=== PATIENT | male | born 1990 | race Caucasian/White ===

== ENCOUNTER 2018-03-06 19:25 | Observation (INO) | payer OTHER, SELFPAY ==
[2018-03-06 19:26] VITALS: BP 162/80; PULSE 86; RESP 18; TEMP 36.2; O2SAT 99; BMI 26.2
[2018-03-06 21:00] VITALS: BP 155/76; PULSE 78; RESP 15; TEMP 36.8; O2SAT 99
--- NOTE | 2018-03-06 21:06 | ED.DCSUM_ITS ---
- ER Visit Summary Date of Service: 03/06/18 Chief Complaint: Left hand swelling and injury History of Present Illness: The patient is a 27 M who presents for 5 days of left hand swelling and pain after an injury. Patient accidentally punctured his left second MCP region with a welding wire. He was seen at urgent care 2 days ago, placed on Bactrim, and had an x-ray performed that showed no bony involvement or retained foreign bodies. He has had 4 doses of the Bactrim, and has had continued worsening of the swelling and pain. Swelling and pain is now moving up his arm. He denies fever. Tetanus is up-to-date. No medical problems. Patient is a smoker. Physical Examination: Patient is afebrile and hemodynamically stable. Well-nourished well-developed in no distress. Examination of the left upper extremity shows significant erythema, swelling and tenderness of the dorsum of the hand, with fluctuance over the second MCP joint. A small scabbed puncture wound noted. Patient has pain with passive flexion. No pain with passive extension. No fusiform swelling. Erythema up to the distal forearm, no lymphangitis beyond the mid distal forearm. No tenderness or lymphadenopathy in the left axilla. Test Results: Abnormal Lab Results 03/06/18 03/06/18 03/06/18 21:25 21:25 21:25 WBC 12.0 H RBC 4.66 Hgb 14.7 Hct 42.3 MCV 90.8 MCH 31.5 MCHC 34.8 RDW 12.8 RDW Differential 42.0 Plt Count 212 MPV 10.6 Immature Gran % (Auto) 0.200 Neut % (Auto) 76.3 H Lymph % (Auto) 13.3 L [place] % (Auto) 8.1 Eos % (Auto) 1.8 Baso % (Auto) 0.3 Absolute Neuts (auto) 9.2 H Absolute Lymphs (auto) 1.60 Total Counted Not Reportable PT 13.3 INR 1.0 APTT 37.1 H Sodium 140 Potassium 3.8 Chloride 107 Carbon Dioxide 26.0 Anion Gap 7 BUN 11 Creatinine 1.01 Estim Creat Clear Calc 109.86 Est GFR (MDRD) Af Amer 114 Est GFR (MDRD) Non-Af 94 BUN/Creatinine Ratio 10.9 Glucose 90 Lactic Acid Calcium 9.0 Total Bilirubin 0.30 AST 16 ALT 24 Alkaline Phosphatase 90 Total Protein 7.1 Albumin 3.8 Globulin 3.3 Albumin/Globulin Ratio 1.2 03/06/18 21:25 WBC RBC Hgb Hct MCV MCH MCHC RDW RDW Differential Plt Count MPV Immature Gran % (Auto) Neut % (Auto) Lymph % (Auto) [place] % (Auto) Eos % (Auto) Baso % (Auto) Absolute Neuts (auto) Absolute Lymphs (auto) Total Counted PT INR APTT Sodium Potassium Chloride Carbon Dioxide Anion Gap BUN Creatinine Estim Creat Clear Calc Est GFR (MDRD) Af Amer Est GFR (MDRD) Non-Af BUN/Creatinine Ratio Glucose Lactic Acid 0.9 Calcium Total Bilirubin AST ALT Alkaline Phosphatase Total Protein Albumin Globulin Albumin/Globulin Ratio Clinical Impression(s) from Imaging Studies Hand X-Ray 03/06/18 21:35 IMPRESSION: Soft tissue swelling of the dorsum of the hand. The osseous structures are unremarkable. Electronically Signed: Neel White MD at 21:57 EST , Service support , Medications Given Discontinued Medications Hydrocodone Bitart/Acetaminophen ([place] 5mg-325mg) 1 tablet PO X1 ONE Stop: 03/06/18 23:47 Last Admin: 03/06/18 23:51 Dose: 1 tablet Ampicillin Sodium/Sulbactam (Sodium 3 gm/ Sodium Chloride) 112 mls @ 150 mls/hr IV X1 ONE Stop: 03/07/18 00:09 Last Admin: 03/06/18 23:56 Dose: 150 mls/hr Vancomycin HCl 1,500 mg/ (Sodium Chloride) 530 mls @ 250 mls/hr IV X1 ONE Stop: 03/07/18 01:32 Last Admin: 03/07/18 00:30 Dose: 250 mls/hr Ketorolac Tromethamine (Toradol) 15 mg IV X1 ONE Stop: 03/06/18 21:04 Last Admin: 03/06/18 21:25 Dose: 15 mg Lidocaine HCl (Lidocaine Hcl 1% Mdv) 0 ml INFILT X1 ONE Stop: 03/06/18 21:04 Last Admin: 03/06/18 23:02 Dose: 1 ml Emergency Department Course and Treatment: Patient presents with significant cellulitic changes to the left hand beginning to radiate up the forearm, with fluctuance over the site of injury over the second MCP joint. X-ray was performed that showed no foreign body, no bony involvement and no subcutaneous gas. Patient had no leukocytosis. Labs were unremarkable. Lactate normal. No signs of systemic illness. Patient received Toradol for pain and normal saline for hydration. He continued to have significant pain and was given [place]. An incision and drainage was performed of the fluctuant area at the site of the wound. The area was cleansed thoroughly with Betadine. An 18-gauge needle was introduced into the point of maximal fluctuance and bloody purulent drainage was easily aspirated. Wound cultures, including anaerobic, was sent. Large amount of pus was expressed from the wound cavity, and a 11 blade scalpel was used to enlarge the puncture site, with expression of even more purulent drainage. Patient had instant improvement of his discomfort with the pressure released. Patient was started on vancomycin and Unasyn. Given the extent of the cellulitic changes involving the entire hand and distal forearm, patient would benefit from admission for IV antibiotics. Patient agreed with this plan and was discussed with the hospitalist. Treatment Plan: [] Disposition: [] Impression: Left hand cellulitis, left hand abscess status post incision and drainage This note was generated with [employer] dictation software. It may contain incorrect words, spelling, and punctuation that were not noted in review of the chart prior to signing ED Disposition - Plan for ED Patient: Disposition: Acute Care [facility] Chief Complaint: Cellulitis
[2018-03-06] MEDS: 0.9% Normal Saline 1,000 ML 999 ML IV (21:25)
[2018-03-06] MEDS: Ketorolac 15 MG/ML Vial IV (21:25)
--- NOTE | 2018-03-06 21:35 | RAD_ITS ---
STUDY: X-RAY - LEFT HAND REASON FOR EXAM: Male, 27 years old. Redness and swelling, foreign body removed 11 days ago TECHNIQUE: 3 view(s) of the hand. COMPARISON: Prior study of 01/04/2009 FINDINGS: Normal radiocarpal articulation. Normal distal radioulnar joint. Normal visualized carpal bones. Normal carpal articulations Normal carpometacarpal articulation of the thumb. Normal second through fifth carpometacarpal joints. Normal metacarpi. Normal metacarpophalangeal joint of the thumb. Normal interphalangeal joint of the thumb. Normal proximal and distal phalanges of the thumb. Normal metacarpophalangeal joints of the second through fifth fingers. Normal proximal and distal interphalangeal joints of the second through fifth fingers. Normal phalanges of the second through fifth fingers. There is soft tissue swelling of the dorsum of the hand. No radiopaque foreign body or soft tissue gas is noted. RAD/Hand Min 3 Views IMPRESSION: Soft tissue swelling of the dorsum of the hand. The osseous structures are unremarkable. Electronically Signed: Neel White MD at 21:57 EST , Service support ,
[2018-03-06 21:43] LABS: Absolute Neutrophil Count 9.2 X10^3/uL (2.0-7.7); Basophil# 0.04 X10^3/uL; Basophil% 0.3 % (0-1); Eosinophil# 0.22 X10^3/uL; Eosinophils% 1.8 % (0-5); Hematocrit 42.3 % (40-54); Hemoglobin 14.7 g/dl (13.0-16.5); Lymphocyte % 13.3 % (19-41); Mean Corp Hgb Conc 34.8 g/gl (32-36); Mean Corpuscular Hgb 31.5 pg (27.0-32.0); Mean Corpuscular Volume 90.8 fL (80-94); Mean Platelet Vol. 10.6 fl (6.2-12.0); Monocyte# 0.97 X10^3/uL; Monocyte% 8.1 % (0-10); Neutrophil # 9.19 X10^3/uL (2.7-7.7); Neutrophil % 76.3 % (47-70); POSITIVE COUNT NO; POSITIVE DIFFERENTIAL NO; POSITIVE MORPHOLOGY NO; Platelet Count 212 K/mm3 (150-450); RBC Distribution Width CV 12.8 % (11.6-14.6); Red Blood Count 4.66 M/mm3 (4.6-6.2)
[2018-03-06 21:49] LABS: Prothrombin Time (Protime)PT. 13.3 SECONDS (11.7-14.9)
[2018-03-06 21:50] LABS: Partial Thromboplast Time 37.1 Seconds (24.1-36.2)
[2018-03-06 21:55] LABS: ALB/GLOB Ratio 1.2 RATIO (0.9-2.4); AST(SGOT) 16 U/L (15-37); Alanine Aminotransfer ALT/SGPT 24 U/L (16-61); Albumin, Serum 3.8 g/dL (3.2-5.0); Alkaline Phosphatase 90 U/L (45-117); Anion Gap 7 (5-15); BUN 11 mg/dL (7-18); BUN/Creat Ratio 10.9 RATIO (10-20); Chloride 107 mmol/L (98-107); Creatinine, Serum 1.01 mg/dL (0.70-1.30); EST Glomerular Filtration Rate 94 mL/min (>60); Est Glom Filt Rate - Afr Amer 114 mL/min (>60); Estimated Creatinine Clearance 109.86 ml/min; Globulin 3.3 g/dL (2.2-4.2); Glucose 90 mg/dL (74-106); Potassium 3.8 mmol/L (3.5-5.1); Protein, Total 7.1 g/dL (6.4-8.2); Sodium Level 140 mmol/L (136-145)
--- NOTE | 2018-03-06 21:59 | ED.RN ---
NO OLD EKG
[2018-03-06 22:00] VITALS: BP 137/86; PULSE 74; RESP 14; TEMP 37.1; O2SAT 100
[2018-03-06 22:10] LABS: Lactic Acid 0.9 mmol/L (0.4-2.0)
[2018-03-06 23:00] VITALS: BP 134/78; PULSE 74; RESP 18; TEMP 36.9; O2SAT 99
[2018-03-06] MEDS: HYDROcodone Bitartrate/Apap 5/325 Tablet PO (23:51)
[2018-03-07] VITALS (7 sets, daily range): BP systolic 118–133; BP diastolic 50–77; PULSE 59–78; RESP 14–20; TEMP 36.6–37.2; O2SAT 97–98; BMI 25.9; BMI 26.0
--- NOTE | 2018-03-07 00:01 | HP.PCM_ITS ---
History of Present Illness Date of Admission: 03/07/18 Chief Complaint: swollen, painful left hand Patient is a 27y/o M With no significant past medical history. He works as a industrial welder. He was admitted through the ED with a complaint of swelling and pain of his right hand for the past few days. According to patient, the dorsum of his left hand was pierced by [place] machine a few days ago. He noticed some redness and swelling and went to an urgent care. He was given a prescription for Bactrim and told that if the swelling worsen he should go to the ED. Symptoms however did not resolve and swelling and redness got worse with decreased ability to use his left hand. He therefore decided to come to the ED today. In the ED vitals were unremarkable. CBC showed white cell count of 12 and BMP was within normal limits. X-ray of the left hand showed soft tissue swelling of the dorsum of the left hand. He had I&D of an abscess on the dorsum of the left hand drain in the ED with drainage of significant amount of pus which was sent for culture. Blood cultures were taken he was started on IV vancomycin and [place] syn. He has been admitted to be managed for cellulitis of the left hand. Past Medical History Allergies No Known Allergies Allergy (Verified 03/06/18 19:26) Home Medications: Ambulatory Orders Medication Instructions Recorded Smz/Tmp Ds [Bactrim Ds] 1 tablet PO BID 03/06/18 Surgical History: no surgical history Psychiatric History: No pertinent psych hx Lives: Alone Smoking Status: Current every day smoker Tobacco Use: Cigarettes Alcohol: None, Occasional Drugs: None - *Family History Maternal History Items: Heart Disease, Hypertension Review of Systems Constitutional: Denies: Chills, Fever, Night Sweats, Weight Change HEENT: Denies: Head Aches, Sinus Congestion, Sinus Drainage Cardiovascular: Denies: Chest Pain, Palpitations Respiratory: Denies: Cough, Shortness of Breath, Shortness of breath at rest, Sputum production Gastrointestinal: Denies: Abdominal Pain, Nausea, Vomiting Genitourinary: Denies: Dysuria Musculoskeletal: Reports: Hand Pain - left hand pain, -. Denies: Joint Pain, Joint Tenderness Skin: Denies: Rash, Wounds Neurological: Denies: Numbness, Tingling, Focal weakness Psychiatric: Denies: Anxiety, Depression, Homicidal Ideations, Suicidal Ideations Hematologic/ Lymphatic: Denies: Easy Bruising, Easy Bleeding VTE Information - Inpt Only VTE Present on Admission: No VTE Pharm Prophylaxis ordered?: Yes - Physical Exam General: Alert, Oriented x3, Cooperative, No apparent distress HEENT: Atraumatic, PERRLA, EOMI, Normocephalic Oral: Moist Mucosa Neck: Supple, No JVD, Negative Carotid Bruits Lungs: Clear to auscultation, Normal air movement Cardiovascular: Regular rate, Regular Rhythm, Normal S1, Normal S2, No murmurs Abdomen: Bowel Sounds Present, Soft, Non Tender, Non-Distended, No Hepato- splenomegaly Extremities: No clubbing, No cyanosis, No edema, Capillary Refill Less than 3 Seconds Skin: No rashes, - - as under MSK Musculoskeletal: - - left hand is swollen, tense, tender to touch and erythematous. fluctuant, erythematous area over dorsum of left 2nd MCP joint, which is site of I&D Lymphatic: No Cervical, Supraclavicular, or Inguinal Adenopathy Neurological: Cranial nerves II-XII grossly intact, Neuro grossly intact, Motor Exam 5/5 strength throughout Psych/Mental Status: Normal Affect, Appropriate, Alert and oriented to time, place, person, mood and affect Vital Signs Temp Pulse Resp BP Pulse Ox 98.5 F 74 18 134/78 H 99 03/06/18 23:00 03/06/18 23:00 03/06/18 23:00 03/06/18 23:00 03/06/18 23:00 Oxygen Delivery Method Room Air Weight: 177 lb 11.081 oz Body Mass Index (BMI) 26.2 Laboratory Tests Past 24 Hrs 03/06/18 03/06/18 03/06/18 21:25 21:25 21:25 WBC 12.0 H RBC 4.66 Hgb 14.7 Hct 42.3 MCV 90.8 MCH 31.5 MCHC 34.8 RDW 12.8 RDW Differential 42.0 Plt Count 212 MPV 10.6 Immature Gran % (Auto) 0.200 Neut % (Auto) 76.3 H Lymph % (Auto) 13.3 L [place] % (Auto) 8.1 Eos % (Auto) 1.8 Baso % (Auto) 0.3 Absolute Neuts (auto) 9.2 H Absolute Lymphs (auto) 1.60 Total Counted Not Reportable PT 13.3 INR 1.0 APTT 37.1 H Sodium 140 Potassium 3.8 Chloride 107 Carbon Dioxide 26.0 Anion Gap 7 BUN 11 Creatinine 1.01 Estim Creat Clear Calc 109.86 Est GFR (MDRD) Af Amer 114 Est GFR (MDRD) Non-Af 94 BUN/Creatinine Ratio 10.9 Glucose 90 Lactic Acid Calcium 9.0 Total Bilirubin 0.30 AST 16 ALT 24 Alkaline Phosphatase 90 Total Protein 7.1 Albumin 3.8 Globulin 3.3 Albumin/Globulin Ratio 1.2 03/06/18 21:25 WBC RBC Hgb Hct MCV MCH MCHC RDW RDW Differential Plt Count MPV Immature Gran % (Auto) Neut % (Auto) Lymph % (Auto) [place] % (Auto) Eos % (Auto) Baso % (Auto) Absolute Neuts (auto) Absolute Lymphs (auto) Total Counted PT INR APTT Sodium Potassium Chloride Carbon Dioxide Anion Gap BUN Creatinine Estim Creat Clear Calc Est GFR (MDRD) Af Amer Est GFR (MDRD) Non-Af BUN/Creatinine Ratio Glucose Lactic Acid 0.9 Calcium Total Bilirubin AST ALT Alkaline Phosphatase Total Protein Albumin Globulin Albumin/Globulin Ratio Diagnostic Data Hand X-Ray 03/06/18 21:35 IMPRESSION: Soft tissue swelling of the dorsum of the hand. The osseous structures are unremarkable. Electronically Signed: Neel White MD at 21:57 EST , Service support , Assessment/Plan 27-year-old male admitted with a complaint of pain, redness and swelling of his left hand. 1. Cellulitis and abscess of left hand s/p I&D * had traumatic injury to hand a few days ago * failed outpatient therapy with bactrim * admit to [facility] surg * xray showed soft tissue swelling of left hand * has mildly elvated white cell count of 12 * blood cultures and cultures of pus obtained * started on IV vancomycin and unasyn in ED; will continue * tylenol for pain * consult with Dr Zaman for further review * 2./ DVT prophylaxis: heparin Code Visit OBSV E&M: 18181 Initial observation care L3
--- NOTE | 2018-03-07 05:19 | PCM.RX.CS ---
Consult Pharmacy has been consulted to manage selected antiobiotic: Vancomycin Type of Consult: New start Suspected Infection: Skin/Soft tissue Labs: Sodium 140 mmol/L (136-145) 03/06/18 21:25 Potassium 3.8 mmol/L (3.5-5.1) 03/06/18 21:25 Chloride 107 mmol/L (98-107) 03/06/18 21:25 Carbon Dioxide 26.0 mmol/L (21.0-32.0) 03/06/18 21:25 Anion Gap 7 (5-15) 03/06/18 21:25 BUN 11 mg/dL (7-18) 03/06/18 21:25 Creatinine 1.01 mg/dL (0.70-1.30) 03/06/18 21:25 Est GFR (MDRD) Af Amer 114 mL/min (>60) 03/06/18 21:25 Est GFR (MDRD) Non-Af 94 mL/min (>60) 03/06/18 21:25 BUN/Creatinine Ratio 10.9 RATIO (10-20) 03/06/18 21:25 Glucose 90 mg/dL (74-106) 03/06/18 21:25 Weight used for dosin.9 kg Estimated Creatinine Clearance: 109.86 Goal Trough: 15-20 mcg/mL Pharmacy Plan for Drug Dosing: Pharmacy Service will continue to monitor and adjust dosing as required. Medications Vancomycin HCl (Vancomycin) 1,000 mg in 200 mls @ 200 mls/hr IV Q12H CARLOS Discontinued Medications Vancomycin HCl 1,500 mg/ (Sodium Chloride) 530 mls @ 250 mls/hr IV X1 ONE Stop: 03/07/18 01:32 Last Admin: 03/07/18 00:30 Dose: 250 mls/hr Follow-Up Labs: Trough Vancomycin Labs to be done on [date and time ordered]: 03/08 @ 0000
[2018-03-07] MEDS: Acetaminophen 325 MG Tablet 650 MG PO (05:58)
[2018-03-07 06:16] LABS: Absolute Neutrophil Count 5.8 X10^3/uL (2.0-7.7); Basophil# 0.03 X10^3/uL; Basophil% 0.3 % (0-1); Eosinophil# 0.34 X10^3/uL; Eosinophils% 3.8 % (0-5); Hematocrit 40.9 % (40-54); Hemoglobin 13.7 g/dl (13.0-16.5); Lymphocyte % 21.5 % (19-41); Mean Corp Hgb Conc 33.5 g/gl (32-36); Mean Corpuscular Hgb 30.8 pg (27.0-32.0); Mean Corpuscular Volume 91.9 fL (80-94); Mean Platelet Vol. 10.8 fl (6.2-12.0); Monocyte# 0.73 X10^3/uL; Monocyte% 8.2 % (0-10); Neutrophil # 5.84 X10^3/uL (2.7-7.7); Neutrophil % 66.1 % (47-70); Platelet Count 190 K/mm3 (150-450); RBC Distribution Width CV 12.9 % (11.6-14.6); RBC Distribution Width SD 42.7 fl (35.1-43.9); Red Blood Count 4.45 M/mm3 (4.6-6.2); White Blood Count 8.9 K/mm3 (4.4-11.0)
[2018-03-07 06:28] LABS: POSITIVE COUNT NO; POSITIVE DIFFERENTIAL NO; POSITIVE MORPHOLOGY NO
[2018-03-07 06:29] LABS: Anion Gap 7 (5-15); BUN 11 mg/dL (7-18); BUN/Creat Ratio 11.1 RATIO (10-20); Calcium,Total 8.4 mg/dL (8.5-10.1); Chloride 111 mmol/L (98-107); Creatinine, Serum 0.99 mg/dL (0.70-1.30); EST Glomerular Filtration Rate 96 mL/min (>60); Est Glom Filt Rate - Afr Amer 117 mL/min (>60); Estimated Creatinine Clearance 112.08 ml/min; Glucose 111 mg/dL (74-106); Potassium 3.6 mmol/L (3.5-5.1); Sodium Level 143 mmol/L (136-145)
[2018-03-07] MEDS: Vancomycin IV 1,000 MG/200 ML BAG 200 MG IV (08:45)
--- NOTE | 2018-03-07 09:40 | CASEMGMT ---
JOE HA Face to Face with patient for initial transition planning/care coordination assessment. RN CM introduced self and role at [facility]. Patient lying in bed, alert and oriented, girlfriend at bedside. Patient willing to participate in assessment and is able to answer all questions appropriately. Care providers, pharmacy, and demographics verified. Patient wishes to discharge home, denies need for home health at this time. Patient has no PCP, list provided. Girlfriend can assist with care. Patient states he has no further needs or concerns at this time. CM to follow for discharge planning needs that may arise. Disposition Plan: Patient to discharge home with family support and follow-up plans in place. Anne STOKES, RN, CM
--- NOTE | 2018-03-07 09:51 | PCM.PN.HOSP ---
Patient Problems: Active and Suspected Problems Cellulitis of left hand excluding fingers and thumb (Acute) Subjective: swelling and pain much improved since his hand was lanced. Vitals/I&O's: Vital Signs Temp Pulse Resp BP Pulse Ox 36.6 C 59 L 16 121/69 H 98 03/07/18 05:53 03/07/18 05:53 03/07/18 05:53 03/07/18 05:53 03/07/18 05:53 Oxygen Delivery Method Room Air Weight: 79.9 kg Body Mass Index (BMI) 25.9 Intake and Output for Last 24 Hours 03/05/18 03/06/18 03/07/18 23:59 23:59 23:59 Intake Total 982 / 982 Balance 982 / 982 General: Alert, No apparent distress HEENT: Atraumatic, Normocephalic Musculoskeletal: - - swelling on dorsum of left hand at 2nd MCP joint. I+D site clean. minimal TTP. Psych/Mental Status: Normal Affect, Appropriate Laboratory Results 03/06/18 21:25: WBC 12.0 H, RBC 4.66, Hgb 14.7, Hct 42.3, MCV 90.8, MCH 31.5, MCHC 34.8, RDW 12.8, RDW Differential 42.0, Plt Count 212, MPV 10.6, Immature Gran % (Auto) 0.200, Neut % (Auto) 76.3 H, Lymph % (Auto) 13.3 L, [place] % (Auto) 8.1, Eos % (Auto) 1.8, Baso % (Auto) 0.3, Absolute Neuts (auto) 9.2 H, Absolute Lymphs (auto) 1.60, Total Counted Not Reportable 03/06/18 21:25: PT 13.3, INR 1.0, APTT 37.1 H 03/06/18 21:25: Sodium 140, Potassium 3.8, Chloride 107, Carbon Dioxide 26.0, Anion Gap 7, BUN 11, Creatinine 1.01, Estim Creat Clear Calc 109.86, Est GFR (MDRD) Af Amer 114, Est GFR (MDRD) Non-Af 94, BUN/Creatinine Ratio 10.9, Glucose 90, Calcium 9.0, Total Bilirubin 0.30, AST 16, ALT 24, Alkaline Phosphatase 90, Total Protein 7.1, Albumin 3.8, Globulin 3.3, Albumin/Globulin Ratio 1.2 03/06/18 21:25: Lactic Acid 0.9 03/07/18 05:45: Sodium 143, Potassium 3.6, Chloride 111 H, Carbon Dioxide 25.0, Anion Gap 7, BUN 11, Creatinine 0.99, Estim Creat Clear Calc 112.08, Est GFR (MDRD) Af Amer 117, Est GFR (MDRD) Non-Af 96, BUN/Creatinine Ratio 11.1, Glucose 111 H, Calcium 8.4 L 03/07/18 05:45: WBC 8.9, RBC 4.45 L, Hgb 13.7, Hct 40.9, MCV 91.9, MCH 30.8, MCHC 33.5, RDW 12.9, RDW Differential 42.7, Plt Count 190, MPV 10.8, Immature Gran % (Auto) 0.100, Neut % (Auto) 66.1, Lymph % (Auto) 21.5, [place] % (Auto) 8.2, Eos % (Auto) 3.8, Baso % (Auto) 0.3, Absolute Neuts (auto) 5.8, Absolute Lymphs (auto) 1.90, Total Counted Not Reportable Current Medications Acetaminophen (Tylenol) 650 mg PO Q6H PRN PRN PRN Reason: PAIN Last Admin: 03/07/18 05:58 Dose: 650 mg Enoxaparin Sodium (Lovenox) 40 mg SC DAILY@1000 CARLOS Ampicillin Sodium/Sulbactam (Sodium 3 gm/ Sodium Chloride) 112 mls @ 150 mls/hr IV Q8 [facility] Last Admin: 03/07/18 05:59 Dose: 150 mls/hr Vancomycin IV Pharmacy to Dose (1 ea/ Sodium Chloride) 500 mls @ 250 mls/hr IV X1 PRN; Protocol PRN Reason: Rx to Dose Sodium Chloride () 250 mls @ 15 mls/hr IV .[id number] PRN PRN Reason: SALINE FLUSH Vancomycin HCl (Vancomycin) 1,000 mg in 200 mls @ 200 mls/hr IV Q12H [facility] Last Admin: 03/07/18 08:45 Dose: 200 mls/hr Ketorolac Tromethamine (Toradol) 30 mg IV Q6H PRN PRN PRN Reason: PAIN Stop: 12/29/18 06:38 Magnesium Hydroxide (Milk Of Magnesia) 30 ml PO DAILY PRN PRN PRN Reason: Constipation Sodium Chloride () 5 - 15 ml IV UD PRN PRN Reason: SALINE FLUSH Sodium Chloride () 5 - 15 ml IV UD PRN PRN Reason: SALINE FLUSH Medical Necessity - Tobacco Use Smoking Status: Current every day smoker Tobacco Use: Cigarettes Assessment/Plan All Active Problems Cellulitis of left hand excluding fingers and thumb (Acute) 1. Left hand abscess and cellulitis 2/2 injury improved after lancing on Unasyn and vanc await Dr. Zaman's evaluation pt anxious to be discharged, but advised it will depend if requires further intervention. Code Visit Procedures: Other Procedure - See Report - non-billable rounding.
--- NOTE | 2018-03-07 09:57 | PN_ITS ---
Patient Problems: Active and Suspected Problems Cellulitis of left hand excluding fingers and thumb (Acute) Subjective: swelling and pain much improved since his hand was lanced. Vitals/I&O's: Vital Signs Temp Pulse Resp BP Pulse Ox 36.6 C 59 L 16 121/69 H 98 03/07/18 05:53 03/07/18 05:53 03/07/18 05:53 03/07/18 05:53 03/07/18 05:53 Oxygen Delivery Method Room Air Weight: 79.9 kg Body Mass Index (BMI) 25.9 Intake and Output for Last 24 Hours 03/05/18 03/06/18 03/07/18 23:59 23:59 23:59 Intake Total 982 / 982 Balance 982 / 982 General: Alert, No apparent distress HEENT: Atraumatic, Normocephalic Musculoskeletal: - - swelling on dorsum of left hand at 2nd MCP joint. I+D site clean. minimal TTP. Psych/Mental Status: Normal Affect, Appropriate Laboratory Results 03/06/18 21:25: WBC 12.0 H, RBC 4.66, Hgb 14.7, Hct 42.3, MCV 90.8, MCH 31.5, MCHC 34.8, RDW 12.8, RDW Differential 42.0, Plt Count 212, MPV 10.6, Immature Gran % (Auto) 0.200, Neut % (Auto) 76.3 H, Lymph % (Auto) 13.3 L, [place] % (Auto) 8.1, Eos % (Auto) 1.8, Baso % (Auto) 0.3, Absolute Neuts (auto) 9.2 H, Absolute Lymphs (auto) 1.60, Total Counted Not Reportable 03/06/18 21:25: PT 13.3, INR 1.0, APTT 37.1 H 03/06/18 21:25: Sodium 140, Potassium 3.8, Chloride 107, Carbon Dioxide 26.0, Anion Gap 7, BUN 11, Creatinine 1.01, Estim Creat Clear Calc 109.86, Est GFR (MDRD) Af Amer 114, Est GFR (MDRD) Non-Af 94, BUN/Creatinine Ratio 10.9, Glucose 90, Calcium 9.0, Total Bilirubin 0.30, AST 16, ALT 24, Alkaline Phosphatase 90, Total Protein 7.1, Albumin 3.8, Globulin 3.3, Albumin/Globulin Ratio 1.2 03/06/18 21:25: Lactic Acid 0.9 03/07/18 05:45: Sodium 143, Potassium 3.6, Chloride 111 H, Carbon Dioxide 25.0, Anion Gap 7, BUN 11, Creatinine 0.99, Estim Creat Clear Calc 112.08, Est GFR (MDRD) Af Amer 117, Est GFR (MDRD) Non-Af 96, BUN/Creatinine Ratio 11.1, Glucose 111 H, Calcium 8.4 L 03/07/18 05:45: WBC 8.9, RBC 4.45 L, Hgb 13.7, Hct 40.9, MCV 91.9, MCH 30.8, MCHC 33.5, RDW 12.9, RDW Differential 42.7, Plt Count 190, MPV 10.8, Immature Gran % (Auto) 0.100, Neut % (Auto) 66.1, Lymph % (Auto) 21.5, [place] % (Auto) 8.2, Eos % (Auto) 3.8, Baso % (Auto) 0.3, Absolute Neuts (auto) 5.8, Absolute Lymphs (auto) 1.90, Total Counted Not Reportable Current Medications Acetaminophen (Tylenol) 650 mg PO Q6H PRN PRN PRN Reason: PAIN Last Admin: 03/07/18 05:58 Dose: 650 mg Enoxaparin Sodium (Lovenox) 40 mg SC DAILY@1000 CARLOS Ampicillin Sodium/Sulbactam (Sodium 3 gm/ Sodium Chloride) 112 mls @ 150 mls/hr IV Q8 [facility] Last Admin: 03/07/18 05:59 Dose: 150 mls/hr Vancomycin IV Pharmacy to Dose (1 ea/ Sodium Chloride) 500 mls @ 250 mls/hr IV X1 PRN; Protocol PRN Reason: Rx to Dose Sodium Chloride () 250 mls @ 15 mls/hr IV .[id number] PRN PRN Reason: SALINE FLUSH Vancomycin HCl (Vancomycin) 1,000 mg in 200 mls @ 200 mls/hr IV Q12H [facility] Last Admin: 03/07/18 08:45 Dose: 200 mls/hr Ketorolac Tromethamine (Toradol) 30 mg IV Q6H PRN PRN PRN Reason: PAIN Stop: 12/29/18 06:38 Magnesium Hydroxide (Milk Of Magnesia) 30 ml PO DAILY PRN PRN PRN Reason: Constipation Sodium Chloride () 5 - 15 ml IV UD PRN PRN Reason: SALINE FLUSH Sodium Chloride () 5 - 15 ml IV UD PRN PRN Reason: SALINE FLUSH Medical Necessity - Tobacco Use Smoking Status: Current every day smoker Tobacco Use: Cigarettes Assessment/Plan All Active Problems Cellulitis of left hand excluding fingers and thumb (Acute) 1. Left hand abscess and cellulitis * 2/2 injury * improved after lancing * on Unasyn and vanc * await Dr. Zaman's evaluation * pt anxious to be discharged, but advised it will depend if requires further intervention. Code Visit Procedures: Other Procedure - See Report - non-billable rounding.
--- NOTE | 2018-03-07 10:44 | PCM.DC ---
- Discharge Diagnoses Current Active Problems: Current Active and Chronic Problems Cellulitis of left hand excluding fingers and thumb (Acute) You will use the following diet at home:: No restrictions Your food should be the consistency of: Regular Your liquids should be the consistency of: Regular/Thin Discharge Activity: - - Do not return to work until ok'd by Dr. Zaman. Keep extremity elevated above heart level: - - left hand Call your doctor if your incision/area has: Continuous Slow Oozing, Sudden Increased Bleeding, Increased Pain/ Swelling, Increased Redness Call your doctor if you observe: Fever of 101 or Higher Change Dressing in (Days):: 1 Cleanse incision/area with: Soap & Water, Keep Dressing Clean & Dry Allergies/Adverse Reactions: Allergies No Known Allergies Allergy (Verified 03/06/18 19:26) Medications to take at Discharge Acetaminophen [Tylenol Tablet] 650 mg PO Q6H PRN PRN tablet 03/07/18 Amoxicillin/Potassium Clav [Augmentin 875-125 Tablet] 1 each PO BID #20 tablet 03/07/18 Doxycycline 100 mg PO BID #20 capsule 03/07/18 Ibuprofen 600 mg PO [id number] PRN #1 tablet 03/07/18 The following prescriptions were given: Amoxicillin/Potassium Clav [Augmentin 875-125 Tablet] 1 each PO BID #20 tablet Doxycycline 100 mg PO BID #20 capsule Ibuprofen 600 mg PO [id number] PRN #1 tablet PRN Reason: Pain Primary Care Physician: [facility] Doctor,Out of [NON-STAFF] - Test Results: Test results from this visit will be discussed in further detail at your follow-up appointment, if applicable. Please Follow Up With: Sonu Zaman MD When: This week. Call for appointment. Proposed Discharge Date: 03/07/18
--- NOTE | 2018-03-07 10:46 | PCM.DC.SUM ---
Discharge Date and Diagnosis - Problem List Patient Problems: Active and Suspected Problems Cellulitis of left hand excluding fingers and thumb (Acute) Date of Admission: 03/07/18 Date of Discharge: 03/07/18 - Primary Discharge Diagnosis Active and Suspected Problems Cellulitis of left hand excluding fingers and thumb (Acute) Hospital Course and Treatment Imaging Results: Clinical Impression(s) from Imaging Studies Hand X-Ray 03/06/18 21:35 IMPRESSION: Soft tissue swelling of the dorsum of the hand. The osseous structures are unremarkable. Electronically Signed: Neel White MD at 21:57 EST , Service support , Operations: None Procedures: None Summary of Care Provided: The patient is a 27 year old M presents with cellulitis of his left hand. Patient had an injury to his left hand week ago was seen in urgent care and started on Bactrim. His hand and left index finger was swollen. Patient presented to the emergency room and had it lanced which showed copious pus. Patient noted great improvement of swelling in his hand. Patient is better able to make a fist though not completely at this time. Patient has no neurovascular compromise at this time. Discussed with Dr. Zaman and stated the patient's hand looks much better at this time. He stated that he would not be able to see the patient until Wednesday but being that is overall improved that he would recommend continuation of antibiotics and to follow-up with him in his office sometime later this week. This was relayed to the patient. Patient is advised to stay off work until okayed by Dr. Zaman. Patient will need to keep the wound clean and dry and keep it elevated. Patient advised to return to the emergency room if he notes any worsening, such as increased or EMILY, increase swelling or increased purulence. [] Patient Problems: Active and Suspected Problems Cellulitis of left hand excluding fingers and thumb (Acute) - Physical Exam Vital Signs Temp Pulse Resp BP Pulse Ox 36.6 C 78 18 121/69 H 98 03/07/18 05:53 03/07/18 07:00 03/07/18 07:00 03/07/18 05:53 03/07/18 05:53 Oxygen Delivery Method Room Air Weight: 79.9 kg Body Mass Index (BMI) 25.9 Intake and Output for Last 24 Hours 03/05/18 03/06/18 03/07/18 23:59 23:59 23:59 Intake Total 982 / 982 Balance 982 / 982 Laboratory Tests Past 24 Hrs 03/06/18 03/06/18 03/06/18 21:25 21:25 21:25 WBC 12.0 H RBC 4.66 Hgb 14.7 Hct 42.3 MCV 90.8 MCH 31.5 MCHC 34.8 RDW 12.8 RDW Differential 42.0 Plt Count 212 MPV 10.6 Immature Gran % (Auto) 0.200 Neut % (Auto) 76.3 H Lymph % (Auto) 13.3 L [place] % (Auto) 8.1 Eos % (Auto) 1.8 Baso % (Auto) 0.3 Absolute Neuts (auto) 9.2 H Absolute Lymphs (auto) 1.60 Total Counted Not Reportable PT 13.3 INR 1.0 APTT 37.1 H Sodium 140 Potassium 3.8 Chloride 107 Carbon Dioxide 26.0 Anion Gap 7 BUN 11 Creatinine 1.01 Estim Creat Clear Calc 109.86 Est GFR (MDRD) Af Amer 114 Est GFR (MDRD) Non-Af 94 BUN/Creatinine Ratio 10.9 Glucose 90 Lactic Acid Calcium 9.0 Total Bilirubin 0.30 AST 16 ALT 24 Alkaline Phosphatase 90 Total Protein 7.1 Albumin 3.8 Globulin 3.3 Albumin/Globulin Ratio 1.2 03/06/18 03/07/18 03/07/18 21:25 05:45 05:45 WBC 8.9 RBC 4.45 L Hgb 13.7 Hct 40.9 MCV 91.9 MCH 30.8 MCHC 33.5 RDW 12.9 RDW Differential 42.7 Plt Count 190 MPV 10.8 Immature Gran % (Auto) 0.100 Neut % (Auto) 66.1 Lymph % (Auto) 21.5 [place] % (Auto) 8.2 Eos % (Auto) 3.8 Baso % (Auto) 0.3 Absolute Neuts (auto) 5.8 Absolute Lymphs (auto) 1.90 Total Counted Not Reportable PT INR APTT Sodium 143 Potassium 3.6 Chloride 111 H Carbon Dioxide 25.0 Anion Gap 7 BUN 11 Creatinine 0.99 Estim Creat Clear Calc 112.08 Est GFR (MDRD) Af Amer 117 Est GFR (MDRD) Non-Af 96 BUN/Creatinine Ratio 11.1 Glucose 111 H Lactic Acid 0.9 Calcium 8.4 L Total Bilirubin AST ALT Alkaline Phosphatase Total Protein Albumin Globulin Albumin/Globulin Ratio Discharge Diet: No Restrictions Discharge Activity: - - Do not return to work until ok'd by Dr. Zaman. Keep extremity elevated above heart level: - - left hand Call your doctor if your incision/area has: Continuous Slow Oozing, Sudden Increased Bleeding, Increased Pain/ Swelling, Increased Redness Call your doctor if you observe: Fever of 101 or Higher Change Dressing in (Days):: 1 Cleanse incision/area with: Soap & Water, Keep Dressing Clean & Dry Home Medications: Medications to take at Discharge Acetaminophen [Tylenol Tablet] 650 mg PO Q6H PRN PRN tablet 03/07/18 Amoxicillin/Potassium Clav [Augmentin 875-125 Tablet] 1 each PO BID #20 tablet 03/07/18 Doxycycline 100 mg PO BID #20 capsule 03/07/18 Ibuprofen 600 mg PO [id number] PRN #1 tablet 03/07/18 Following Prescrptions Were Given to Patient: Amoxicillin/Potassium Clav [Augmentin 875-125 Tablet] 1 each PO BID #20 tablet Doxycycline 100 mg PO BID #20 capsule Ibuprofen 600 mg PO [id number] PRN #1 tablet PRN Reason: Pain Primary Care Physician: Keron Alfred,Out of [NON-STAFF] - Please Follow Up With: Sonu Zaman MD When: This week. Call for appointment. Disposition: Home Minutes spent on discharge:: 35 Patient Condition:: Good Medical Necessity - Tobacco Use Smoking Status: Current every day smoker Tobacco Use: Cigarettes Meaningful Use Info Meaningful Use Diagnoses (Choose all that apply): None applicable Code Visit OBSV E&M: 58115 Observation care discharge
== END 2018-03-07 12:00 | disposition home or self-care (01) ==
LOC: ED 21:52 → MS3 03-07 00:01
PROVIDERS: Admitting Provider Student in an Organized Health Care Education/Training Program; Emergency Provider Emergency Medicine
DX: L03.114 Cellulitis of left upper limb (principal); F17.210 Nicotine dependence, cigarettes, uncomplicated; L02.512 Cutaneous abscess of left hand
CPT/HCPCS: 10060; 36415; 73130; 80048; 80053; 83605; 85025; 85610; 85730; 87040; 87070; 87075; 87186; 87205; 96361; 96365; 96366; 96367; 96375; 99218; 99283; J7030; J7040; G0378; J0295

== ENCOUNTER 2021-12-25 07:48 | Emergency (ER) | payer OTHER, SELFPAY ==
[2021-12-25 07:49] VITALS: BP 135/81; PULSE 55; RESP 14; TEMP 36.1; O2SAT 100; BMI 28.6
--- NOTE | 2021-12-25 08:31 | EX.ED.DYSGE1 ---
HPI History of Present Illness Chief Complaint: Complaint Informant: patient Onset/Context/Timing Onset: Today Context: Sudden Onset Timing: Continuous Quality: Cramping, sharp Location: Left flank Worsened by: Laying flat Relieved by: Bending forward Narrative Narrative: Patient presents with pain in his back and left kidney area that began today. Patient states it is cramping and sharp. Patient states he also feels spasm over his low back and pressure over his lower abdomen. Patient states his pain began rather suddenly. Patient states it has been constant. Patient states it is worse whenever he lays flat and better whenever he bends forward. Patient states he did have an episode of nausea and vomiting today. Patient denies any fevers or chills. Patient denies any dysuria or hematuria. Patient also thinks she may be constipated. PFSH PFSH Medical History no medical history no medical history Home Medications acetaminophen 325 mg tablet (Tylenol) 650 mg PO Q6H PRN PRN Pain 03/07/18 [Rx Last Taken Unknown] doxycycline monohydrate 100 mg capsule 100 mg PO BID ##20 03/07/18 [Rx Last Taken Unknown] ibuprofen 600 mg tablet 600 mg PO [id number] PRN Pain #1 TAB 03/07/18 [Rx Last Taken Unknown] doxycycline hyclate 100 mg capsule 100 mg PO BID #60 caps 03/16/18 [Rx Last Taken Unknown] hydrocodone-acetaminophen 5-325mg 5mg-325mg 1 tab PO Q6H PRN PRN Pain 3 days #10 TABLETS 12/25/21 [Rx Last Taken Unknown] Allergy/AdvReac Type Severity Reaction Status Date / Time No Known Allergies Allergy Verified 12/25/21 07:49 Family History (Updated 03/23/18 @ 15:59 by Josie Rivers) Other Diabetes Hypertension Surgical History no surgical history no surgical history Social History Smoking Status: Current every day smoker tobacco type: cigarettes alcohol intake: current substance use type: does not use additional social history: DOES NOT USE ASPIRIN DOES USE IBUPROFEN ROS ROS ED Constitutional Constitutional ED: Denies chills or fever(s) Eyes Eyes: Denies blurry vision or change in vision ENT ENT ED: Denies rhinorrhea or sore throat Cardiovascular Cardiovascular: Denies chest pain or palpitations Respiratory/Chest Respiratory/Chest: Denies cough or dyspnea Gastrointestinal Gastrointestinal: Reports abdominal pain, nausea and vomiting Genitourinary Genitourinary ED: Denies dysuria or hematuria Musculoskeletal Musculoskeletal: Reports back pain; Denies neck pain Integumentary Denies abscess or rash Neurologic Neurologic: Denies headache(s) or weakness Allergic/Immunologic Allergic/Immunologic ED: Denies mouth swelling or urticaria EXAM Physical Exam Const Vital Signs: 12/25/21 07:49 12/25/21 09:08 Temperature 97 F L 97 F L Temperature Source Temporal Temporal Pulse Rate 55 L 55 L Respiratory Rate 14 14 Blood Pressure 135/81 H 135/81 H Blood Pressure Mean 99 99 Pulse Ox 100 100 Oxygen Delivery Method Room Air Room Air Positive well nourished and well developed General Appearance ED: well developed and NAD HEENT Reports moist mucous membranes Neck supple and no JVD Resp normal respiratory effort and clear to auscultation bilaterally Cardio regular rate, regular rhythm and no murmurs GI normal to inspection, nondistended, normoactive bowel sounds Palpation: soft and tender suprapubic (Mild); Negative for guarding or rebound tenderness present Back/Spine General Back: CVA tenderness left Extremity normal to inspection General Extremety ED: Negative for edema or tenderness General Extremity: Negative for edema Neuro oriented x3, CN's II-XII intact bilaterally and no sensory deficits noted Sensorium / Orientation: alert Motor Exam: strength 5/5 throughout Psych mental status grossly normal Skin no rashes or lesions noted MDM MDM MDM Narrative Medical decision making narrative: Patient was given IV fluids, Toradol, and Zofran. CBC shows a mild leukocytosis of 15.5. Basic metabolic profile was within normal limits. Urinalysis shows occult blood of 250 with 25-50 red blood cells. There is no evidence of urinary tract infection. CT scan of the abdomen pelvis was obtained. There is a 3 mm calculus at the left ureterovesicular junction causing mild hydronephrosis and hydroureter. There is some mild periureteral stranding. There is a small apical hernia and a small umbilical hernia. This was interpreted by the radiologist and reviewed by myself. Patient was advised of his findings. Patient was given a prescription for a short course of [place]. Patient was instructed to follow-up with his primary care physician in 5 to 7 days. Patient was also given referral for urology. Patient was instructed to return if worse in any way. Patient understood and was agreeable with the plan. All questions were answered. Lab Data Attestation: I reviewed the patient's lab results. Labs: Laboratory Results - last 24 hr 12/25/21 12/25/21 12/25/21 08:40 08:44 08:44 WBC 15.5 H RBC 5.38 Hgb 16.4 Hct 48.4 MCV 90.0 MCH 30.5 MCHC 33.9 RDW Std Deviation 39.2 RDW Coeff of [place] 12.0 Plt Count 284 MPV 10.2 Immature Gran % (Auto) 0.500 Neut % (Auto) 85.3 H Lymph % (Auto) 8.3 L [place] % (Auto) 4.8 Eos % (Auto) 0.6 Baso % (Auto) 0.5 Absolute Neuts (auto) 13.2 H Absolute Lymphs (auto) 1.29 Nucleated RBC % 0 Sodium 141 Potassium 4.1 Chloride 107 Carbon Dioxide 31.0 Anion Gap 3 L BUN 18 Creatinine 1.12 Estim Creat Clear Calc 95.56 Est GFR (MDRD) Af Amer 98 Est GFR (MDRD) Non-Af 81 BUN/Creatinine Ratio 16.1 Glucose 117 H Calcium 10.1 Urine Color Yellow Urine Clarity Sl. Cloudy Urine pH 5.0 Ur Specific [place] 1.025 Urine Protein 30 H Urine Glucose (UA) Normal Urine Ketones 5 H Urine Occult Blood 250 H Urine Nitrite Negative Urine Bilirubin Negative Urine Urobilinogen 1 H Ur Leukocyte Esterase 25 H Urine RBC 25-50 SEEN Urine WBC 0-5 SEEN Ur Squamous Epith Cells 0 SEEN Urine Bacteria 1+ Urine Mucus 1+ Radiography Diagnostic Testing: Clinical Impression(s) from Imaging Studies Abdomen/Pelvis CT 12/25/21 08:34 IMPRESSION: 3 mm calculus at the left ureterovesical junction causing minimal degree of left hydronephrosis and hydroureter with periureteric stranding. Small apical hernia. Small umbilical hernia. Electronically Signed: Kali Burton MD at 9:17 EDT , Discharge Plan Triage Chief Complaint: Complaint ED Provider: Marques Castorena Dx/Rx/DC Orders Clinical Impression: Calculus of distal left ureter, Hydronephrosis of left kidney Instructions: ED Kidney Stone w/ Colic Prescriptions: New hydrocodone-acetaminophen [hydrocodone-acetaminophen] 1 TABLET tablet 1 tab PO Q6H PRN PRN (Reason: Pain) 3 Days Qty: 10 0RF No Action doxycycline hyclate 100 mg capsule 100 mg PO BID Qty: 60 0RF acetaminophen [Tylenol] 325 MG tablet 650 mg PO Q6H PRN PRN (Reason: Pain) 0RF doxycycline monohydrate 100 MG capsule 100 mg PO BID Qty: 20 0RF ibuprofen 600 MG tablet 600 mg PO [id number] PRN (Reason: Pain) Qty: 1 0RF Primary Care Provider: Care Physician,No Primary Referrals: Guevara Holder MD [Med Staff - Active Staff] - 3-5 Days Care Physician,No Primary [Primary Care Provider] - Disposition Disposition: Home, Self Care
--- NOTE | 2021-12-25 08:34 | CT_ITS ---
STUDY: CT ABDOMEN AND PELVIS WITHOUT CONTRAST REASON FOR EXAM: Male, 31 years old. Left flank pain RADIATION DOSAGE (If Supplied By Facility): CTDIvol = ( 7.95 ) mGy, DLP = ( 429.27 ) mGycm TECHNIQUE: Transaxial images were obtained from the dome of the diaphragm to the symphysis pubis without oral contrast, and without intravenous contrast. Sagittal and coronal images were reconstructed. Individualized dose optimization techniques were used for this CT. COMPARISON: None. FINDINGS: The visualized lung bases are unremarkable. The visualized portions of the heart are within normal limits. Normal liver. Normal gallbladder and extrahepatic biliary system. Normal spleen. Normal pancreas. Normal bilateral adrenal glands. Normal right kidney. Minimal degree of left hydronephrosis and left hydroureter with a periureteric stranding. There is a 3 mm calculus in the distal portion of the left ureter at the ureterovesical junction. Calcified phleboliths are seen within the pelvis. There is a small hiatal hernia. Normal small intestine. Normal colon. The appendix is visualized and appears normal. Small lymph nodes are seen in the mesenteric fat in the right lower quadrant and compatible with mesenteric adenitis. Normal abdominal aorta. Normal inferior vena cava. There is borderline retroperitoneal lymphadenopathy with enlarged nodes no greater than 10mm in the short axis diameter. Normal urinary bladder. There is a small umbilical hernia containing fat. Normal osseous structures. CT/Abdomen/Pelvis without Cont IMPRESSION: 3 mm calculus at the left ureterovesical junction causing minimal degree of left hydronephrosis and hydroureter with periureteric stranding. Small apical hernia. Small umbilical hernia. Electronically Signed: Kali Burton MD at 9:17 EDT ,
[2021-12-25 08:51] LABS: Squamous Epithelial Cells - UA 0 SEEN /hpf (0-5)
[2021-12-25 08:51] LABS: Absolute Lymphocyte Count 1.29 X10^3/uL (0.83-4.51); Absolute Neutrophil Count 13.2 X10^3/uL (2.0-7.7); Basophil# 0.08 X10^3/uL; Basophil% 0.5 % (0-1); Eosinophils% 0.6 % (0-5); Hematocrit 48.4 % (40-54); Hemoglobin 16.4 g/dL (13.0-16.5); Lymphocyte # 1.29 X10^3/ul (0.83-4.51); Lymphocyte % 8.3 % (19-41); Mean Corp Hgb Conc 33.9 g/dL (32-36); Mean Corpuscular Hgb 30.5 pg (27.0-32.0); Mean Platelet Vol. 10.2 fl (6.2-12.0); Monocyte# 0.75 X10^3/uL; Monocyte% 4.8 % (0-10); NRBC Flagged by Analyzer 0 % (0-5); Neutrophil # 13.21 X10^3/uL (2.7-7.7); Neutrophil % 85.3 % (47-70); Platelet Count 284 K/mm3 (150-450); RBC Distribution Width SD 39.2 fl (35.1-43.9); Red Blood Count 5.38 M/mm3 (4.6-6.2); White Blood Count 15.5 K/mm3 (4.4-11.0)
[2021-12-25 08:54] LABS: Color, Urine Yellow (Yellow); Glucose, Dipstick Normal (Normal); Ketone-Dipstick 5 mg/dl (Negative); Leukocyte Esterase-Dipstick 25 /ul (Negative); Nitrite-Dipstick Negative (Negative); Occult Blood-Urine 250 /ul (Negative); Protein-Dipstick 30 mg/dl (Negative); Specific Gravity, Urine 1.025 (1.002-1.030); Urine Bilirubin Dipstick Negative (Negative); Urine Clarity Sl. Cloudy (Clear); Urine Urobilinogen 1 mg/dl (Normal)
[2021-12-25 09:02] LABS: Red Blood Cells-Urine 25-50 SEEN /hpf (0-5)
[2021-12-25 09:03] LABS: Anion Gap 3 (5-15); BUN 18 mg/dL (7-18); BUN/Creat Ratio 16.1 RATIO (10-20); Calcium,Total 10.1 mg/dL (8.5-10.1); Chloride 107 mmol/L (98-107); Creatinine, Serum 1.12 mg/dL (0.70-1.30); EST Glomerular Filtration Rate 81 mL/min (>60); Est Glom Filt Rate - Afr Amer 98 mL/min (>60); Estimated Creatinine Clearance 95.56 ml/min; Glucose 117 mg/dL (74-106); Potassium 4.1 mmol/L (3.5-5.1); Sodium Level 141 mmol/L (136-145)
[2021-12-25 09:03] LABS: Bacteria 1+ /hpf (None Seen); Mucous, Urine 1+ /hpf (<or=2+); White Blood Cells 0-5 SEEN /hpf (0-5)
[2021-12-25 09:08] VITALS: BP 135/81; PULSE 55; RESP 14; TEMP 36.1; O2SAT 100
[2021-12-25] MEDS: 0.9% Normal Saline 1,000 ML 1000 ML IV (09:17)
[2021-12-25 10:11] VITALS: BP 123/69; BP 135/81; PULSE 55; PULSE 72; RESP 14; RESP 15; TEMP 36.1; O2SAT 100; O2SAT 98
== END 2021-12-25 10:12 | disposition home or self-care (01) ==
PROVIDERS: Emergency Provider Emergency Medicine; Visit Provider Emergency Medicine
DX: N13.2 Hydronephrosis with renal and ureteral calculous obstruction (principal); M62.830 Muscle spasm of back; F17.210 Nicotine dependence, cigarettes, uncomplicated; Z79.899 Other long term (current) drug therapy
CPT/HCPCS: 74176; 80048; 81001; 85025; 96361; 96374; 96375; 99283; J7030; A4216; J2405